=== PATIENT | female | born 1995 ===

== ENCOUNTER 2023-06-25 06:51 | Day surgery (SDC) | payer OTHER ==
[~2023-06-25 06:51] MED LIST: LEVOTHYROXINE25 MCG PO
[2023-06-25] MEDS ORDERED: PERCOCET 5-3251 EACH PO (12:32)
== END 2023-06-25 15:40 | disposition home or self-care (01) ==
LOC: CIR.AMB 06:51
PROVIDERS: ATTEND Surgery
DX: C73 Malignant neoplasm of thyroid gland (principal); Z20.822 Contact with and (suspected) exposure to COVID-19